=== PATIENT | male | born 1995 | race Two or more races ===

== ENCOUNTER 2021-03-11 17:25 | Emergency (ER) | payer MEDICAID, OTHER ==
[~2021-03-11] VITALS: Ht 177.8 cm; Wt 75.3 kg
[2021-03-11 17:50] VITALS: BP 101/57
== END 2021-03-11 19:00 | disposition left against medical advice (07) ==
LOC: ER 17:25
DX: R42 Dizziness and giddiness (principal); Z53.21 Procedure and treatment not carried out due to patient leaving prior to being seen by health care provider

== ENCOUNTER 2023-01-14 18:14 | Emergency (ER) | payer MEDICAID, OTHER ==
[~2023-01-14] VITALS: Ht 177.8 cm; Wt 82.8 kg
[2023-01-14 19:14] VITALS: BP 116/55
[2023-01-14] MEDS ORDERED: LIDOCAINE 1% HCL (LOCAL ANESTH.) INJ 20ML MDV ONE (22:24)
[2023-01-14] MEDS ORDERED: TETANUS-DIPTH-ACEL PERTUSSIS 0.5ML SYR Tdap IM ONE (22:30)
[2023-01-14] MEDS ORDERED: LIDOCAINE 1% HCL (LOCAL ANESTH.) INJ 20ML MDV ID ONE (22:30)
== END 2023-01-14 23:10 | disposition home or self-care (01) ==
LOC: ER 18:14
DX: S61.211A Laceration without foreign body of left index finger without damage to nail, initial encounter (principal); Z88.0 Allergy status to penicillin; W27.8XXA Contact with other nonpowered hand tool, initial encounter; Y93.89 Activity, other specified; Y92.89 Other specified places as the place of occurrence of the external cause; Y99.8 Other external cause status
CPT/HCPCS: 12002; 90471; 90715; 99283; J2001